=== PATIENT | female | born 1980 | race Caucasian/White ===

== ENCOUNTER 2021-12-16 18:17 | Emergency (ER) | payer OTHER, SELFPAY ==
[2021-12-16 18:22] VITALS: BP 108/67; PULSE 83; RESP 16; TEMP 36.6; O2SAT 100
--- NOTE | 2021-12-16 18:24 | ED.EYEPROB ---
HPI - Eye Problem General Chief complaint: Eye Problems Stated complaint: right eye pain Time Seen by Provider: 12/16/21 18:25 Source: patient and RN notes reviewed History of Present Illness HPI Narrative: Patient is a 41-year-old female who presents the urgent care with complaints of right eye irritation due to possible foreign body. Patient states that she was outside in the garden today and thinks that maybe some soil got in her eye. Patient states that she has tried to wash it out with water with no improvement. Denies of any blunt force trauma. Denies any vision changes. No other acute complaints. No acute distress noted. Patient aware of the plan of care. Some parts of this dictation were generated by voice recognition software and may contain typographical and/or grammatical inaccuracies. Related Data Allergies Allergy/AdvReac Type Severity Reaction Status Date / Time amoxicillin Allergy Unknown RASH Verified 12/16/21 18:26 codeine Allergy Unknown Unknown Verified 12/16/21 18:26 Penicillins Allergy Unknown Unknown Verified 12/16/21 18:26 Review of Systems Review of Systems: CONSTITUTIONAL: Denies fever, chills, or sweats. EYES: Reports of right eye irritation and clear drainage ENT: Denies rhinorrhea, congestion, sore throat, or otalgia. CARDIOVASCULAR: Denies chest pain, palpitations, or edema. RESPIRATORY: Denies cough or dyspnea. GASTROINTESTINAL: Denies abdominal pain, nausea, vomiting, or diarrhea. GENITOURINARY: Denies dysuria or hematuria. SKIN: Denies rash or itching. MUSCULOSKELETAL: Denies back pain, joint pain, or myalgia. NEUROLOGIC: Denies headache, numbness, or weakness. All other systems reviewed are negative, except as documented in HPI. PMFSH Comments At the time of my signature, I reviewed and agree with the nursing past medical, surgical, social, and family history. There is no relevant family history pertinent to the patient complaint. Exam Narrative: GENERAL: This is a well-nourished, well-developed patient, in no apparent distress. HEAD: normocephalic, atraumatic. EYES: PERRL. Left sclera clear/white. Vision is grossly intact. Mild irritation noted to the sclera of the right eye EARS: External ears normal NOSE: External nose normal with no obvious nasal discharge, nares without redness, no rhinorrhea. THROAT: Mucous membranes moist NECK: Neck supple CARDIOVASCULAR: Regular rate and rhythm without murmurs, gallops, or rubs. RESPIRATORY: Clear to auscultation. Breath sounds equal bilaterally. No wheezes, rales, or rhonchi. SKIN: warm, intact with no suspicious lesions or rash, good texture and turgor. NEURO: awake, alert, and oriented to person, place and time. There were no obvious focal neurologic abnormalities. EXTREMITIES: No clubbing, cyanosis, or edema. Course Course Level of Care: Express Care Visit Vital Signs Vital signs: Vital Signs Temperature 97.8 F 12/16/21 18:22 Pulse Rate 83 12/16/21 18:22 Respiratory Rate 16 12/16/21 18:22 Blood Pressure 108/67 12/16/21 18:22 Pulse Oximetry 100 12/16/21 18:22 Temperature 97.8 F 12/16/21 18:22 Pulse Rate 83 12/16/21 18:22 Respiratory Rate 16 12/16/21 18:22 Blood Pressure 108/67 12/16/21 18:22 Pulse Oximetry 100 12/16/21 18:22 Reviewed Procedures Other Procedure Procedure 1: Other Procedure: Eyewash to right eye. Patient tolerated well. 2 drops of tetracaine applied. Patient deferred staining. No fluorescein was used. No obvious foreign body noted with direct visualization. Patient states that symptoms subsided post eyewash. No complications. MDM - Eye Problem MDM Narrative Medical decision making narrative: Advised the patient to use the eyewash twice a day prior to using the medicated eyedrops to the affected eye. May use a warm compress for comfort. Use the eyedrops as directed and be sure to complete the eyedrops in its entirety. If you develop any increase in symptoms associate
== END 2021-12-16 19:22 | disposition home or self-care (01) ==
PROVIDERS: Emergency Provider Nurse Practitioner Family; PCP Family Medicine
DX: H57.11 Ocular pain, right eye (principal)
CPT/HCPCS: 99213; A9270; G0463